=== PATIENT | female | born 1970 | race Two or more races ===

== ENCOUNTER 2019-08-20 06:47 | Inpatient (IN) | payer OTHER ==
[~2019-08-20] VITALS: Ht 160 cm; Wt 65.8 kg
[2019-08-20] MEDS ORDERED: VITAMIN D1000 UNIT (06:55)
[2019-08-20] MEDS ORDERED: LEVOXYL100 MCG (06:55)
[2019-08-25] MEDS ORDERED: DOXYCYCLINE HY100 M3 PO (08:26)
[2019-08-25] MEDS ORDERED: NYSTATIN15 G2 TOP (08:26)
[2019-08-25] MEDS ORDERED: INTESTINEX680 M1 PO (08:26)
== END 2019-08-25 12:54 | disposition home or self-care (01) | DRG 603 ==
LOC: ER 06:47 → SEC-K 21:09 → MEDJ 21:09 → SURH 23:08 → MEDJ 23:09
PROVIDERS: ADMIT Internal Medicine
PROC: 8E0ZXY6 Isolation (ICD-10-PCS; principal; 2019-08-20)
DX: L03.115 Cellulitis of right lower limb (principal); E03.8 Other specified hypothyroidism; E55.9 Vitamin D deficiency, unspecified; F41.1 Generalized anxiety disorder

== ENCOUNTER 2022-12-05 10:32 | Outpatient (CLI) | payer OTHER ==
[~2022-12-05 10:32] MED LIST: DOXYCYCLINE HY100 M3 PO; INTESTINEX680 M1 PO; LEVOXYL100 MCG; NYSTATIN15 G2 TOP; VITAMIN D1000 UNIT
== END 2022-12-05 10:35 | disposition home or self-care (01) ==
LOC: SONOGRAMA 10:32
PROVIDERS: ATTEND Pathology Anatomic Pathology & Clinical Pathology
DX: D34 Benign neoplasm of thyroid gland (principal); E04.9 Nontoxic goiter, unspecified

== ENCOUNTER 2025-09-12 08:00 | Outpatient (CLI) | payer OTHER | END 2025-09-12 08:03 | disposition home or self-care (01) | LOC: SONOGRAMA 08:00 | PROVIDERS: ATTEND General Practice | DX: E04.2 Nontoxic multinodular goiter (principal); R16.0 Hepatomegaly, not elsewhere classified; Q44.6 Cystic disease of liver ==